=== PATIENT | male | born 1990 | race Caucasian/White ===

== ENCOUNTER 2019-06-13 08:42 | Emergency (ER) | payer MEDICAID ==
[~2019-06-13] VITALS: Ht 180.3 cm; Wt 93.9 kg
[2019-06-13 08:53] VITALS: BP 132/75; Ht 180.3 cm; Wt 93.9 kg
== END 2019-06-13 09:50 | disposition home or self-care (01) ==
LOC: ED 08:42
DX: M54.5 Low back pain (principal); Z91.041 Radiographic dye allergy status